=== PATIENT | female | born 1950 | race Caucasian/White ===

== ENCOUNTER → 2016-04-22 08:32 | Outpatient (CLI) | payer BC | END | disposition home or self-care (01) | LOC: D.CT 08:32 | DX: K56.7 Ileus, unspecified (principal) ==

== ENCOUNTER → 2016-08-20 14:51 | Outpatient (CLI) | payer MEDICARE, OTHER | END | disposition home or self-care (01) | LOC: D.MRI 14:51 | DX: M19.90 Unspecified osteoarthritis, unspecified site (principal); M25.552 Pain in left hip; M25.551 Pain in right hip; M06.9 Rheumatoid arthritis, unspecified; M71.9 Bursopathy, unspecified ==